=== PATIENT | male | born 1960 | race Caucasian/White ===

== ENCOUNTER 2018-03-17 07:29 | Emergency (ER) | payer BC, OTHER ==
[2018-03-17 08:01] VITALS: BP 118/69
--- NOTE | 2018-03-17 08:42 | RAD ---
INDICATION: Wrist pain COMPARISON: None TECHNIQUE: AP, lateral, and oblique views were obtained. FINDINGS: There is mild osteoarthritis but the radiocarpal joint and the first CMC articulation. There is no acute bony change. There are vascular calcifications. IMPRESSION: MILD OSTEOARTHRITIS. NO ACUTE FINDINGS.
--- NOTE | 2018-03-17 09:11 | UC ---
Upper Extremity HPI - HPI Summary HPI Summary: 57 yo WM c/o left wrist pain x 1 days, noticed while driving from work, denies trauma or injury denies numbness or tingling , works as a nurse. - History of Current Complaint Chief Complaint: UCUpperExtremity Stated Complaint: LEFT WRIST COMPLAINT Time Seen by Provider: 03/17/18 07:35 Hx Obtained From: Patient Onset/Duration: Gradual Onset Severity Initially: Moderate Severity Currently: Moderate Pain Intensity: 9 Character: Dull Aggravating Factor(s): Movement Alleviating Factor(s): Compression Associated Signs And Symptoms: Positive: Negative. Negative: Numbness/Tingling - Allergies/Home Medications Allergies/Adverse Reactions: Allergies Allergy/AdvReac Type Severity Reaction Status Date / Time amoxicillin Allergy Tingling Verified 03/17/18 07:54 codeine Allergy Abdominal Verified 03/17/18 07:53 Pain Home Medications: Home Medications Ibuprofen 800 mg PO Q6HR 03/17/18 [History Confirmed 03/17/18] Insulin Glargine,Hum.rec.anlog [Lantus] 80 units PO DAILY 03/17/18 [History Confirmed 03/17/18] Insulin ISOPH/REG 70/30 (*) [HumuLIN 70/30 (*)] 40 units INJ DAILY 03/17/18 [ History Confirmed 03/17/18] Liraglutide (NF) [Victoza (NF)] 1.8 ml INJ DAILY 03/17/18 [History Confirmed 08/25] Lisinopril/HCTZ 08/19.5(NF) [Zestoretic 08/19.5(NF)] 1 each PO DAILY 03/17/18 [ History Confirmed 03/17/18] Metformin HCl 500 mg PO BID 03/17/18 [History Confirmed 03/17/18] Metoprolol Succinate 100 mg PO DAILY 03/17/18 [History Confirmed 03/17/18] Pravastatin (NF) [Pravachol (NF)] 10 mg PO DAILY 03/17/18 [History Confirmed 08/25] PMH/Surg Hx/FS Hx/Imm Hx Previously Healthy: Yes Endocrine History: Diabetes Cardiovascular History: Hypertension - Surgical History Surgical History: Yes Surgery Procedure, Year, and Place: UMBILICAL HERNIA - Social History Alcohol Use: None Substance Use Type: None Smoking Status (MU): Former Smoker When Did the Patient Quit Smoking/Using Tobacco: 1985 Review of Systems Constitutional: Negative Skin: Negative Eyes: Negative ENT: Negative Respiratory: Negative Cardiovascular: Negative Gastrointestinal: Negative Genitourinary: Negative Motor: Negative Neurovascular: Negative Musculoskeletal: Other: - see HPI Neurological: Negative Psychological: Negative Is Patient Immunocompromised?: No All Other Systems Reviewed And Are Negative: Yes Physical Exam Triage Information Reviewed: Yes Appearance: No Pain Distress Vital Signs: Initial Vital Signs Temp 37.0 C 03/17/18 07:38 Pulse 93 03/17/18 07:38 Resp 20 03/17/18 07:38 BP 118/69 03/17/18 07:38 Pulse Ox 96 03/17/18 07:38 Eye Exam: Normal ENT Exam: Normal Dental Exam: Normal Neck exam: Normal Neck: Positive: 1 Respiratory Exam: Normal Cardiovascular Exam: Normal Abdominal Exam: Normal Musculoskeletal Exam: Normal Musculoskeletal: Positive: Strength Intact, ROM Intact, No Edema, Other: - TTP over dorsal thumb and lateral flexor surface of left wrist, NVI Neurological Exam: Normal Psychological Exam: Normal Skin Exam: Normal Upper Extremity Course/Dx - Course Course Of Treatment: XR left wrist- mild OA on left CMC, no other bony changes - Differential Dx/Diagnosis Differential Diagnosis/HQI/PQRI: Strain, Sprain Provider Diagnoses: left wrist strain. left wrist OA Discharge - Sign-Out/Discharge Documenting (check all that apply): Discharge/Admit/Transfer - Discharge Plan Condition: Stable Disposition: HOME Referrals: Ion Little MD [Primary Care Provider] - - Billing Disposition and Condition Condition: STABLE Disposition: HOME
== END 2018-03-17 09:16 | disposition home or self-care (01) ==
LOC: UCCORT 07:29
DX: S63.502A Unspecified sprain of left wrist, initial encounter (principal); X58.XXXA Exposure to other specified factors, initial encounter; Y93.9 Activity, unspecified; Y92.9 Unspecified place or not applicable; M19.032 Primary osteoarthritis, left wrist; Z88.5 Allergy status to narcotic agent; Z88.0 Allergy status to penicillin; E11.9 Type 2 diabetes mellitus without complications; Z79.84 Long term (current) use of oral hypoglycemic drugs; Z79.4 Long term (current) use of insulin; I10 Essential (primary) hypertension; Z87.891 Personal history of nicotine dependence
CPT/HCPCS: 99202; G0463

== ENCOUNTER 2022-07-07 12:29 | Inpatient (IN) ==
[2022-07-07 12:56] LABS: ABS Basophils 0.1 10^3/ul (0-0.2); ABS Eosinophils 0.1 10^3/ul (0-0.6); ABS Lymphocytes 2.5 10^3/ul (1.0-4.8); ABS Monocytes 0.8 10^3/ul (0-0.8); Eosinophil % 0.7 %; Hematocrit 51 % (42-52); Hemoglobin 16.7 g/dL (14.0-18.0); Lymphocyte % 29.6 %; Mean Corpuscular HGB Conc 33 g/dL (31-36); Mean Corpuscular Hemoglobin 29 pg (27-31); Mean Corpuscular Volume 89 fL (80-94); Mean Platelet Volume 8.7 fL (7.4-10.4); Nucleated Red Blood Cells % 0.3; Platelet Count 266 10^3/uL (150-450); Red Cell Distribution Width 16 % (10-15); White Blood Count 8.4 10^3/uL (3.5-10.8)
[2022-07-07 13:07] LABS: INR 0.98 (0.89-1.11)
[2022-07-07 13:57] LABS: Albumin/Globulin Ratio 1.3 (1-3); Calcium 10.2 mg/dL (8.6-10.3); Potassium 4.4 mmol/L (3.5-5.0); Total Bilirubin 0.5 mg/dL (0.2-1.0); eGFR CKD-EPI 79.9 (>60)
[2022-07-07 14:26] LABS: High Sensitivity Troponin 1 Hr 3 pg/mL (<20)
[2022-07-07 16:58] LABS: Magnesium 2.2 mg/dL (1.9-2.7)
[2022-07-07] MEDS ORDERED: Lactated Ringers 1000 ml BAG 1,000 ML IV ONE (19:35)
[2022-07-07 20:26] LABS: TSH Ultra Thyroid Stim Horm 1.94 mcIU/mL (0.34-5.60)
[2022-07-07] MEDS: Enoxaparin 40 MG/0.4 ML SYR SUBCUT SCH (21:06)
[2022-07-07 22:07] LABS: C Reactive Protein 2.23 mg/L (<8.01)
[2022-07-07] MEDS: Insulin GLARGINE 100 un/ml 10 ml VIAL SUBCUT SCH (22:29)
[2022-07-08] MEDS ORDERED: Albuterol HFA INHALER 8 gm MDI INH PRN (00:43)
[2022-07-08 07:14] LABS: Calcium 9.9 mg/dL (8.6-10.3); HDL Cholesterol 28.6 mg/dL; Magnesium 2.2 mg/dL (1.9-2.7); Potassium 4.2 mmol/L (3.5-5.0); eGFR CKD-EPI 83.7 (>60)
[2022-07-08] MEDS ORDERED: Perflutren Lipid Microsphere 3 ML VIAL ONE (08:02)
[2022-07-08] MEDS ORDERED: Lisinopril/HCTZ 20/12.5 TB(NF) PO SCH (09:00)
[2022-07-08] MEDS: Empagliflozin 25 MG TAB PO SCH (09:00)
[2022-07-08] MEDS: Insulin ISOPH/REG 70/30 SUBCUT SCH ×2 (09:01→16:45)
[2022-07-08] MEDS: Insulin GLARGINE 100 un/ml 10 ml VIAL SUBCUT SCH (20:26)
[2022-07-08] MEDS: Enoxaparin 40 MG/0.4 ML SYR SUBCUT SCH (20:27)
[2022-07-09] MEDS: Empagliflozin 25 MG TAB PO SCH (07:55)
[2022-07-09] MEDS: Insulin ISOPH/REG 70/30 SUBCUT SCH ×2 (07:55→16:53)
[2022-07-09] MEDS ORDERED: Regadenoson 0.4 MG/5 ML SYRINGE ONE ×2 (08:16→12:29)
[2022-07-09] MEDS ORDERED: Aminophylline 25 MG/ML VIAL ONE ×2 (08:17→12:29)
[2022-07-09] MEDS: Enoxaparin 40 MG/0.4 ML SYR SUBCUT SCH (21:08)
[2022-07-09] MEDS: Insulin GLARGINE 100 un/ml 10 ml VIAL SUBCUT SCH (21:09)
[2022-07-10 05:43] LABS: ABS Eosinophils 0.1 10^3/ul (0-0.6); ABS Lymphocytes 1.5 10^3/ul (1.0-4.8); ABS Monocytes 0.7 10^3/ul (0-0.8); ABS Neutrophils 3.7 10^3/ul (1.5-7.7); Eosinophil % 0.9 %; Hematocrit 49 % (42-52); Lymphocyte % 25.6 %; Mean Corpuscular HGB Conc 33 g/dL (31-36); Mean Corpuscular Hemoglobin 29 pg (27-31); Mean Corpuscular Volume 88 fL (80-94); Mean Platelet Volume 8.6 fL (7.4-10.4); Nucleated Red Blood Cells % 0.1; Platelet Count 252 10^3/uL (150-450); Red Blood Count 5.51 10^6 /uL (4.18-5.48); Red Cell Distribution Width 16 % (10-15)
[2022-07-10 06:07] LABS: Calcium 9.4 mg/dL (8.6-10.3); Magnesium 2.1 mg/dL (1.9-2.7); Potassium 3.5 mmol/L (3.5-5.0); eGFR CKD-EPI 95.8 (>60)
[2022-07-10] MEDS: Insulin ISOPH/REG 70/30 SUBCUT SCH (08:00)
[2022-07-10] MEDS ORDERED: NS 0.9% 1000 ml BAG 1,000 ML IV SCH ×2 (08:15→10:15)
[2022-07-10] MEDS ORDERED: VERAPAMIL 2.5 MG/ML 2 ML VIAL ** 5 mg/2 ml ONE (08:54)
[2022-07-10] MEDS ORDERED: fentaNYL 100 mcg/2 ml 50 MCG/ML VIAL ONE (08:54)
[2022-07-10] MEDS ORDERED: Midazolam 5 mg/5 ml VIAL 1 mg/ml 5 ml VIAL (5 mg) ONE (08:54)
[2022-07-10] MEDS ORDERED: Heparin 1,000 UNIT/ML 10 ml (10,000 UNITS) CATHLAB/DIALYSIS ONE (08:54)
[2022-07-10] MEDS ORDERED: Heparin 2 UNITS/ML 1000 mls 2,000 ML IV ONE (08:54)
[2022-07-10] MEDS ORDERED: Iohexol 350 (CONTRAST) 100 ML PAK IV ONE (08:55)
[2022-07-10] MEDS ORDERED: Lidocaine 1% MPF 5 ML VIAL ONE (08:55)
[2022-07-10] MEDS ORDERED: Furosemide 20 mg/2 ml IV VIAL IV ONE (13:01)
[2022-07-10] MEDS: Empagliflozin 25 MG TAB PO SCH (13:52)
[2022-07-10 18:12] VITALS: BP 124/74
== END 2022-07-10 17:52 | disposition home or self-care (01) | DRG 192 ==
LOC: EDHOLD 12:29 → ED 12:29 → SUATTDRO 19:25 → EDHOLD 07-08 13:18 → MEDTELE 07-08 14:42
PROVIDERS: ADMIT Internal Medicine; ATTEND Student in an Organized Health Care Education/Training Program

== ENCOUNTER 2024-04-06 07:06 | Observation (INO) ==
[2024-04-06 08:08] LABS: ABS Basophils 0.1 10^3/uL (0.0-0.1); ABS Eosinophils 0.1 10^3/uL (0.0-0.5); ABS Lymphocytes 1.4 10^3/uL (1.0-4.8); ABS Monocytes 0.6 10^3/uL (0.0-1.1); ABS Neutrophils 7.5 10^3/uL (1.5-7.6); ABS Nucleated RBC 0.01 10^3/ul; Eosinophil % 0.9 %; Hematocrit 46.7 % (38-53); Hemoglobin 15.7 g/dL (13.2-16.3); Lymphocyte % 14.5 %; Mean Corpuscular Hemoglobin 28.9 pg (27-33); Mean Corpuscular Hgb Conc 33.6 g/dL (31-36); Mean Corpuscular Volume 86.1 fL (80-97); Mean Platelet Volume 8.1 fL (7.5-11.2); Nucleated Red Blood Cells % 0.1 %/100WBC (0.0-0.8); Platelet Count 287 10^3/uL (150-450); Red Blood Count 5.42 10^6/uL (4.06-5.63); Red Cell Distribution Width 16.5 % (12-17); White Blood Count 9.7 10^3/uL (3.6-10.2)
[2024-04-06 08:49] LABS: Albumin 3.9 g/dL (3.2-5.2); Albumin/Globulin Ratio 1.4 (1-3); Calcium 9.6 mg/dL (8.6-10.3); Creatinine, Serum 0.95 mg/dL (0.67-1.17); Globulin 2.7 g/dL (2-4); Magnesium 2.1 mg/dL (1.9-2.7); Potassium 4.4 mmol/L (3.5-5.0); Total Bilirubin 0.3 mg/dL (0.2-1.0); Total Protein 6.6 g/dL (6.4-8.9); eGFR CKD-EPI 91.1 (>60)
[2024-04-06] MEDS: NS 0.9% 1000 ml BAG 1,000 ML IV ONE (08:49)
[2024-04-06 09:04] LABS: TSH Ultra Thyroid Stim Horm 2.18 mcIU/mL (0.34-5.60)
[2024-04-06] MEDS: Iodixanol (CONTRAST) 320 MG/ML 100 ML SDV IV ONE (09:18)
[2024-04-06 09:46] LABS: High Sensitivity Troponin 1 Hr 6 pg/mL (<20)
[2024-04-06 11:44] LABS: Urine Appearance Clear; Urine Bilirubin Negative (Negative); Urine Blood Negative (Negative); Urine Color Light-Yellow; Urine Glucose 4+ (>=1000 mg/dL) (Negative); Urine Ketones Negative (Negative); Urine Nitrite Negative (Negative); Urine Protein Negative (Negative); Urine Urobilinogen Negative (Negative)
[2024-04-06 12:32] LABS: Hepatitis C Antibody Negative (Negative)
[2024-04-06] MEDS ORDERED: Dextrose 50% Syringe 50 ml 25 GM/50 ML SYRINGE IV PUSH PRN (13:17)
[2024-04-06] MEDS: Enoxaparin 40 MG/0.4 ML SYR SUBCUT SCH (14:56)
[2024-04-06] MEDS: Insulin GLARGINE 100 un/ml 10 ml VIAL SUBCUT SCH (22:03)
[2024-04-07 06:00] LABS: ABS Basophils 0.1 10^3/uL (0.0-0.1); ABS Eosinophils 0.1 10^3/uL (0.0-0.5); ABS Lymphocytes 1.8 10^3/uL (1.0-4.8); ABS Monocytes 0.6 10^3/uL (0.0-1.1); ABS Neutrophils 5.2 10^3/uL (1.5-7.6); ABS Nucleated RBC 0.01 10^3/ul; Eosinophil % 1.4 %; Hematocrit 46.1 % (38-53); Hemoglobin 15.3 g/dL (13.2-16.3); Lymphocyte % 22.7 %; Mean Corpuscular Hemoglobin 28.7 pg (27-33); Mean Corpuscular Hgb Conc 33.3 g/dL (31-36); Mean Corpuscular Volume 86.4 fL (80-97); Mean Platelet Volume 8.2 fL (7.5-11.2); Nucleated Red Blood Cells % 0.1 %/100WBC (0.0-0.8); Platelet Count 292 10^3/uL (150-450); Red Blood Count 5.33 10^6/uL (4.06-5.63); Red Cell Distribution Width 16.9 % (12-17); White Blood Count 7.8 10^3/uL (3.6-10.2)
[2024-04-07 06:17] LABS: Calcium 9.5 mg/dL (8.6-10.3); Creatinine, Serum 0.95 mg/dL (0.67-1.17); Magnesium 2.2 mg/dL (1.9-2.7); Potassium 4.4 mmol/L (3.5-5.0); eGFR CKD-EPI 91.1 (>60)
[2024-04-07] MEDS: Empagliflozin 25 MG TAB PO SCH (07:52)
[2024-04-07 11:22] LABS: Hepatitis C Antibody Negative (Negative)
[2024-04-07 13:52] VITALS: BP 128/69
== END 2024-04-07 13:55 | disposition home or self-care (01) ==
LOC: ED 07:06 → EDHOLD 07:06 → SUATTDRO 11:57 → MEDTELE 12:16
PROVIDERS: ADMIT Hospitalist; ATTEND Hospitalist

== ENCOUNTER 2024-04-26 05:59 | Inpatient (IN) ==
[2024-04-26 06:27] LABS: ABS Basophils 0.1 10^3/uL (0.0-0.1); ABS Eosinophils 0.1 10^3/uL (0.0-0.5); ABS Monocytes 0.8 10^3/uL (0.0-1.1); ABS Neutrophils 5.4 10^3/uL (1.5-7.6); ABS Nucleated RBC 0.02 10^3/ul; Eosinophil % 1.7 %; Hematocrit 47.8 % (38-53); Hemoglobin 15.9 g/dL (13.2-16.3); Lymphocyte % 23.6 %; Mean Corpuscular Hemoglobin 28.6 pg (27-33); Mean Corpuscular Hgb Conc 33.3 g/dL (31-36); Mean Platelet Volume 8.2 fL (7.5-11.2); Nucleated Red Blood Cells % 0.2 %/100WBC (0.0-0.8); Platelet Count 318 10^3/uL (150-450); Red Blood Count 5.56 10^6/uL (4.06-5.63); Red Cell Distribution Width 16.8 % (12-17); White Blood Count 8.5 10^3/uL (3.6-10.2)
[2024-04-26 06:50] LABS: INR 0.97 (0.83-1.13)
[2024-04-26 07:15] LABS: Albumin 3.9 g/dL (3.2-5.2); Albumin/Globulin Ratio 1.3 (1-3); Calcium 9.9 mg/dL (8.6-10.3); Creatinine, Serum 1.03 mg/dL (0.67-1.17); Magnesium 2.2 mg/dL (1.9-2.7); Potassium 4.5 mmol/L (3.5-5.0); Total Bilirubin 0.3 mg/dL (0.2-1.0); Total Protein 6.9 g/dL (6.4-8.9); eGFR CKD-EPI 82.6 (>60)
[2024-04-26 08:06] LABS: High Sensitivity Troponin 1 Hr 6 pg/mL (<20)
[2024-04-26 10:40] LABS: C Reactive Protein 2.29 mg/L (<8.01); HDL Cholesterol 38.7 mg/dL
[2024-04-26 12:18] LABS: Erythrocyte Sed Rate 13 mm/Hr (0-19)
[2024-04-26] MEDS: Enoxaparin 40 MG/0.4 ML SYR SUBCUT SCH (13:34)
[2024-04-26] MEDS ORDERED: Sulfur Hexaflouride MICROSPHR 25 MG VIAL ONE (16:16)
[2024-04-26] MEDS ORDERED: Dextrose 50% Syringe 50 ml 25 GM/50 ML SYRINGE IV PUSH PRN (16:55)
[2024-04-26] MEDS: Empagliflozin 25 MG TAB PO SCH (17:34)
[2024-04-26 19:11] LABS: C Reactive Protein 2.29 mg/L (<8.01)
[2024-04-26 19:26] LABS: TSH Ultra Thyroid Stim Horm 1.6 mcIU/mL (0.34-5.60)
[2024-04-26] MEDS: Insulin GLARGINE 100 un/ml 10 ml VIAL SUBCUT SCH (21:55)
[2024-04-26] MEDS: NS 0.9% 1000 ml BAG 1,000 ML IV SCH (23:55)
[2024-04-27 06:46] LABS: ABS Eosinophils 0.1 10^3/uL (0.0-0.5); ABS Lymphocytes 1.8 10^3/uL (1.0-4.8); ABS Monocytes 0.7 10^3/uL (0.0-1.1); ABS Nucleated RBC 0.01 10^3/ul; Eosinophil % 0.8 %; Hematocrit 46.4 % (38-53); Hemoglobin 15.3 g/dL (13.2-16.3); Lymphocyte % 24.1 %; Mean Corpuscular Hemoglobin 28.6 pg (27-33); Mean Corpuscular Volume 86.7 fL (80-97); Mean Platelet Volume 8.4 fL (7.5-11.2); Nucleated Red Blood Cells % 0.1 %/100WBC (0.0-0.8); Platelet Count 315 10^3/uL (150-450); Red Blood Count 5.35 10^6/uL (4.06-5.63); Red Cell Distribution Width 16.5 % (12-17); White Blood Count 7.7 10^3/uL (3.6-10.2)
[2024-04-27] MEDS: Sulfur Hexaflouride MICROSPHR 25 MG VIAL IV ONE (06:59)
[2024-04-27 07:03] LABS: Calcium 9.5 mg/dL (8.6-10.3); Creatinine, Serum 1.03 mg/dL (0.67-1.17); Magnesium 2.2 mg/dL (1.9-2.7); Potassium 4.4 mmol/L (3.5-5.0); eGFR CKD-EPI 82.6 (>60)
[2024-04-27] MEDS ORDERED: Clindamycin 900 MG/50 **NS BAG 0 MG/0 ML BAG ONE (12:50)
[2024-04-27] MEDS ORDERED: Clindamycin 900 MG/50 **NS BAG 900 MG/50 ML BAG ONE (12:54)
[2024-04-27] MEDS ORDERED: Midazolam 5 mg/5 ml VIAL 1 mg/ml 5 ml VIAL (5 mg) ONE ×2 (13:19→14:23)
[2024-04-27] MEDS ORDERED: fentaNYL 100 mcg/2 ml 50 MCG/ML VIAL ONE ×2 (13:19→14:27)
[2024-04-27] MEDS: Clindamycin 900 MG/D5W BAG 900 MG/50 ML BAG IVPB ONE (13:33)
[2024-04-27] MEDS ORDERED: Lidocaine 1% VIAL 10 MG/ML 30 ML VIAL ONE (13:34)
[2024-04-27] MEDS: Midazolam 10 mg/10 ml VIAL 1 mg/ml 10 ml VIAL (10 mg) IV SLOW PU ONE (14:11)
[2024-04-27] MEDS: fentaNYL 100 mcg/2 ml 50 MCG/ML VIAL IV SLOW PU ONE (14:11)
[2024-04-28 04:49] LABS: Hematocrit 46.7 % (38-53); Hemoglobin 15.3 g/dL (13.2-16.3); Mean Corpuscular Hemoglobin 28.4 pg (27-33); Mean Corpuscular Hgb Conc 32.9 g/dL (31-36); Mean Corpuscular Volume 86.4 fL (80-97); Mean Platelet Volume 8.1 fL (7.5-11.2); Platelet Count 288 10^3/uL (150-450); Red Cell Distribution Width 16.5 % (12-17); White Blood Count 8.4 10^3/uL (3.6-10.2)
[2024-04-28 05:26] LABS: Calcium 9.5 mg/dL (8.6-10.3); Creatinine, Serum 0.88 mg/dL (0.67-1.17); Magnesium 2.2 mg/dL (1.9-2.7); Potassium 4.1 mmol/L (3.5-5.0); eGFR CKD-EPI 97.8 (>60)
[2024-04-28] MEDS: Ondansetron 4 mg VIAL 2 MG/ML 2 ml VIAL IV ONE (07:47)
[2024-04-28 12:14] VITALS: BP 131/78
[2024-04-29 16:10] LABS: Anaplasma phagocytophilum Negative (Negative); B. miyamotoi PCR, B Negative (Negative); Babesia divergens/MO-1 Negative (Negative); Babesia ducani Negative (Negative); Ehrlichia chaffeensis Negative (Negative); Ehrlichia ewingii/canis Negative (Negative); Ehrlichia muris eauclairensis Negative (Negative)
[2024-05-01 18:39] LABS: IgG Immunoblot Negative (Negative); IgM Immunoblot Negative (Negative)
== END 2024-04-28 11:30 | disposition home or self-care (01) | DRG 171 ==
LOC: ED 05:59 → EDHOLD 10:12 → ICU 12:34
PROVIDERS: ADMIT Internal Medicine Pulmonary Disease; ATTEND Internal Medicine Pulmonary Disease